=== PATIENT | female | born 1980 | race Caucasian/White ===

== ENCOUNTER 2019-05-12 07:00 | Outpatient (CLI) | payer OTHER ==
[2019-05-12] VITALS (13 sets, daily range): BP systolic 96–131; BP diastolic 62–70
[~2019-05-12] VITALS: Ht 147.3 cm; Wt 81.6 kg
[2019-05-12] MEDS ORDERED: MONT10TA49 PO (07:31)
[2019-05-12] MEDS ORDERED: FEXO180T81 PO (07:31)
[2019-05-12] MEDS ORDERED: HYDR25TA PO ×2 (07:31)
[2019-05-12 07:33] LABS: BASO # 0.1 x10^3/uL (0.0-0.2); BASO % 1 % (0-3); EOS # 0.1 x10^3/uL (0.0-0.7); EOS % 1 % (0-3); HEMATOCRIT 41.9 % (36.0-47.0); HEMOGLOBIN 14.1 g/dL (12.0-15.5); LYMPH % 25 % (24-48); MEAN CORPUSCULAR HEMOGLOBIN 29 pg (25-35); MEAN CORPUSCULAR HGB CONC 34 g/dL (31-37); MEAN CORPUSCULAR VOLUME 86 fL (79-100); MONO # 0.5 x10^3/uL (0.0-1.1); MONO % 6 % (0-9); NEUT # 5.6 x10^3/uL (1.8-7.7); NEUT % 68 % (31-73); PLATELET COUNT 378 x10^3/uL (140-400); RED CELL DISTRIBUTION WIDTH 13.6 % (11.5-14.5); WHITE BLOOD COUNT 8.3 x10^3/uL (4.0-11.0)
[2019-05-12] MEDS ORDERED: CEPH-264 PO (07:47)
[2019-05-12] MEDS ORDERED: LIDOCAINE WITH 8.4% SOD BICARB 3 ML DISP.SYRIN. ONE (07:56)
[2019-05-12] MEDS ORDERED: fentaNYL PF VIAL 100 MCG/2 ML VIAL ONE (08:09)
[2019-05-12] MEDS ORDERED: MIDAZOLAM HCL/PF 2 MG/2 ML VIAL. ONE (08:09)
[2019-05-12] MEDS ORDERED: MIDAZOLAM HCL/PF 2 MG/2 ML VIAL. IV ONE (08:15)
[2019-05-12] MEDS ORDERED: LIDOCAINE WITH 8.4% SOD BICARB 3 ML DISP.SYRIN. IJ ONE (08:15)
[2019-05-12] MEDS ORDERED: fentaNYL PF VIAL 100 MCG/2 ML VIAL IV ONE (08:15)
[2019-05-12] MEDS ORDERED: ONDANSETRON PF 4 MG/2 ML VIAL. ONE (08:43)
[2019-05-12] MEDS ORDERED: ONDANSETRON PF 4 MG/2 ML VIAL. IV ONE (08:45)
--- NOTE | 2019-05-12 09:33 | PDOC ---
MODERATE SEDATION ASSESSMENT RISKS/ALTERNATIVES Risks/Alternatives Risks and alternatives of this type of sedation and procedure discussed with: RISK/ALTERNATIVES: Patient H & P ON CHART H & P H & P on chart and reviewed for co-morbid conditions and appropriate labs. H&P ON CHART: Yes STATUS PREG STATUS ASSESSED: Yes MEDS/ALLERGIES REVIEWED Meds/Allergies Reviewed Medications and Allergies including time and route of recently administered narcotics and sedatives. MEDS/ALLERGIES REVIEWED: Yes ASA RATING ASA RATING: II AIRWAY ASSESSMENT Airway Assessment Airway patency, oral function limitations, presence of caps, crowns, dentures, partials, and ability to extend neck assessed. AIRWAY ASSESSMENT: Yes MALLAMPATI SCORE MALLAMPATI SCORE: II PRE-SEDATION ASSESSMENT PRE-SEDATION ASSESSMENT: Yes REBEKA ALVES MD May 12, 2019 09:33
--- NOTE | 2019-05-12 09:38 | PDOC ---
BRIEF OPERATIVE NOTE Pre-Op Diagnosis Mast cell activation Post-Op Diagnosis same Procedure Performed CT Bone Marrow Biopsy Surgeon Kate Anesthesia Type: Conscious Sedation Specimens Obtained 2 x 3cc aspirates and 1 x 10g core Complications No immediate REBEKA ALVES MD May 12, 2019 09:38
--- NOTE | 2019-05-12 09:39 | PDOC1 ---
History and Physical Date of Procedure Date of Admission History of Present Illness Reason for Visit Mast cell activation Past Medical History Past Medical History see nursing pre-op assessment Past Surgical History Past Surgical History see nursing pre-op assessment Current Medications Current Medications Current Medications Lidocaine/Sodium Bicarbonate (Buffered Lidocaine 1%) 3 ml STK-MED ONCE .ROUTE ; Start 05/12/19 at 07:56; Stop 05/12/19 at 07:57; Status DC Midazolam HCl (Versed) 2 mg STK-MED ONCE .ROUTE ; Start 05/12/19 at 08:09; Stop 05/12/19 at 08:09; Status DC Fentanyl Citrate (Fentanyl 2ml Vial) 100 mcg STK-MED ONCE .ROUTE ; Start 05/12/19 at 08:09; Stop 05/12/19 at 08:10; Status DC Lidocaine/Sodium Bicarbonate (Buffered Lidocaine 1%) 3 ml 1X ONCE IJ Last administered on 05/12/19at 09:09; Start 05/12/19 at 08:15; Stop 05/12/19 at 08:17; Status DC Midazolam HCl (Versed) 2 mg 1X ONCE IV Last administered on 05/12/19at 09:09; Start 05/12/19 at 08:15; Stop 05/12/19 at 08:17; Status DC Fentanyl Citrate (Fentanyl 2ml Vial) 100 mcg 1X ONCE IV Last administered on 05/12/19at 09:09; Start 05/12/19 at 08:15; Stop 05/12/19 at 08:17; Status DC Ondansetron HCl (Zofran) 4 mg STK-MED ONCE .ROUTE ; Start 05/12/19 at 08:43; Stop 05/12/19 at 08:44; Status DC Ondansetron HCl (Zofran) 4 mg 1X ONCE IV Last administered on 05/12/19at 09:09; Start 05/12/19 at 08:45; Stop 05/12/19 at 08:49; Status DC Active Scripts Active Reported Keflex (Cephalexin) 500 Mg Capsule 500 Mg PO QID 10 Days Montelukast Sodium Tablet (Montelukast Sodium) 10 Mg Tablet 10 Mg PO DAILY Sienna Allergy (Fexofenadine Hcl) 180 Mg Tablet 180 Mg PO BID Hydroxyzine Hcl 25 Mg Tablet 75 Mg PO PRN PRN Hydroxyzine Hcl 25 Mg Tablet 25 Mg PO DAILY Allergies Allergies: Coded Allergies: Penicillins (Verified Allergy, Intermediate, 05/12/19) Sulfa (Sulfonamide Antibiotics) (Verified Allergy, Intermediate, 05/12/19) Physical Exam Vital Signs Vital Signs Date Time Temp Pulse Resp B/P (MAP) Pulse Ox O2 Delivery O2 Flow Rate FiO2 05/12/19 09:21 70 12 100 Nasal Cannula 05/12/19 09:10 2.0 05/12/19 08:55 98/64 (75) 05/12/19 07:42 97.9 97.9 Other see nursing pre-op assessment Assessment Assessment Mast cell activation Plan Plan CT Bone Marrow Biopsy REBEKA ALVES MD May 12, 2019 09:39
--- NOTE | 2019-05-12 10:40 | RAD ---
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 The patient was monitored by a qualified independent observer throughout the time of sedation. Please refer to the medical record for exact doses of medications utilized to achieve moderate sedation. Antibiotics: None Fluoro Time: Not applicable Contrast: None Sterility: The procedure was performed in its entirety using appropriate elements of sterile technique. Consent: The procedure was explained in its entirety to the patient or the patients designated publications sales representative by a member of the treatment team, including a discussion of the risks, benefits and commonly accepted alternatives to the procedure, as well as the expected consequences of no therapy whatsoever. Discussion of the risks included, but was not limited to, those that are most frequent and those that are rare but possibly severe or life-threatening, as well as the possibility of unforeseen complications. Technique and Findings: Following informed consent, the patient was prepped and draped in usual sterile fashion. Preliminary CT scan of the area of interest was performed. 1% Lidocaine was used to achieve local anesthesia. Under periodic CT surveillance, an 11-gauge needle was advanced through the cortex of the posterior superior iliac spine and 2 separate 2 mL marrow aspirates were obtained and preserved on site by the senior it assistant. A single 11-gauge core biopsy specimen was then obtained and preserved in formalin. The needle was then removed and hemostasis was achieved with manual compression. Complications: No immediate Impression: 1. CT-guided bone marrow aspiration and biopsy as described PQRS Compliance Statement: One or more of the following individualized dose reduction techniques were utilized for this examination: 1. Automated exposure control 2. Adjustment of the mA and/or kV according to patient size 3. Use of iterative reconstruction technique
== END 2019-05-12 11:40 | disposition home or self-care (01) ==
LOC: INTRAD 07:00
PROVIDERS: ATTEND Internal Medicine Hematology & Oncology
DX: D89.40 Mast cell activation, unspecified (principal); Z79.01 Long term (current) use of anticoagulants; Z88.1 Allergy status to other antibiotic agents; Z88.0 Allergy status to penicillin
CPT/HCPCS: 36415; 38222; 77012; 85025; 85610; 88184; 88185; 88237; 99152; J2250; J2405; J3010

== ENCOUNTER → 2020-04-05 | Outpatient (CLI) | payer OTHER ==
[2019-05-12 11:00] VITALS: BP 113/70
[~2020-04-05] MED LIST: CEPH-264 PO; FEXO180T81 PO; HYDR25TA PO; LORA10TA55 PO; MONT10TA49 PO; OMEP20TA63 PO; juice plus vitamins
--- NOTE | 2020-04-05 13:07 | PAIN ---
DATE OF SERVICE: 04/05/2020 INITIAL CONSULTATION FOR PAIN CLINIC CHIEF COMPLAINT: Low back and right lower extremity pain. HISTORY OF PRESENT ILLNESS: This is a 40-year-old female who presents with history of pain for about 10 years plus started when she was and over the years, she has had multiple physical therapy, regimens, chiropractic treatments. Became somewhat manageable, but never fully relieved of the entire amount of pain in her right leg and low back. The patient reports it is worse with walking, standing, changing positions. When she walks for more than 10-15 minutes, she has to stop and rest for about 2-3 minutes and the pain did subside significantly, but then she can start up again and the whole thing repeats. The patient reports it awakens her from sleep at least once or twice a night, does not affect her bowel or bladder control, but does affect her ability to walk significantly. She has had physical therapy, chiropractic treatment, exercise, which she does currently and was working on this morning, but her right foot became numb, so she stopped. The patient reports that she has taken ibuprofen, which helps, but only for about 40-50%, as well as physical therapies in the past. The patient has not had any other treatments. She has not had any diagnostic studies at this time as well. The patient reports the pain is constant, tingling with numbness and radiating pain in the right lower extremity, aching as well in the back. The patient rates her disability rating from 0-10, 10 being the worst, is a 4 with family home responsibilities, recreation, social activity, 5 with occupation, 6 with sexual behavior, 3 with self-care and 3 with life support activities. The patient reports no loss of motor function, but significant fatigability in the right lower extremity but not using any assistive devices to ambulate. PAST MEDICAL HISTORY: Significant for arthritis, dizziness. PREVIOUS SURGERY: . No other surgeries. CURRENT MEDICATIONS: Include Prilosec, montelukast, and loratadine. ALLERGIES: THE PATIENT HAS ALLERGY TO PENICILLIN AND SULFA. FAMILY HISTORY: Significant for cancers, heart disease and diabetes. SOCIAL HISTORY: The patient does not drink alcohol, does not smoke. Not using illegal, illicit or recreational drugs. She is , lives with her spouse, has 2 children living at home, lives in [place], [place]. REVIEW OF SYSTEMS: The patient's review of systems is positive for those items mentioned in history of present illness. All systems reviewed and otherwise negative. It is complete, full and well documented on the patient's chart. PHYSICAL EXAMINATION: VITAL SIGNS: The patient's blood pressure 117/70, pulse 72, respirations 16, temperature 98.3 degrees Fahrenheit. Height is 4 feet 11 inches, weight is 185 pounds. GENERAL: The patient is awake, alert, oriented, appropriate, very pleasant demeanor. HEENT: Shows normocephalic, atraumatic. Extraocular movements are intact and symmetrical. Oral cavity: Mucous membranes moist and pink. Dentition is intact. NECK: Shows anterior throat supple without palpable lymphadenopathy noted. Swallow reflex symmetrical. CHEST: Shows normal on inspection. Breath sounds are clear bilaterally. HEART: Shows S1, S2 clear. No murmurs auscultated. ABDOMEN: Obese but soft, nontender, nondistended. No palpable organomegaly is noted. There is no rebound or guarding demonstrated. BACK: Shows spine grossly in the midline. Normal appearing thoracic kyphosis and minor flattening of lumbar lordotic curvature. Lumbar paraspinous muscle shows symmetrical on inspection, on palpation shows some moderate tenderness diffusely bilaterally, but only diffusely throughout the upper, middle and lower distribution of paraspinous muscles and much worse; however, in the inferior aspect on the right compared to the left with very significant tenderness over the posterior superior iliac spine as well. The patient shows good rotational motion of lumbar spine, however, both laterally as well as extension and flexion without significant pain reported. EXTREMITIES: Lower extremities show deep tendon reflexes 2+ in the patellar, 1+ tendo-calcaneus tendons. Motor exam is strong with approximately 4 on a scale of 5 with right dorsiflexion, extension and 5/5 on the left. Quadriceps and hamstring flexion 5/5 and equal bilaterally. Peripheral pulses are 1+ posterior tibial. No peripheral edema is noted bilaterally. Peripheral pulses are 1+ posterior tibial. No peripheral edema noted. Lower extremities are warm and dry to touch, equal in color and appearance. The patient is able to stand, stand on her toes without significant difficulty or loss of balance. Walks with a normal appearing gait, does not appear to favor the right or left lower extremity significantly with ambulation. Straight leg raise noted to be negative for reproduction of radicular symptoms bilaterally. Gaenslen's and Henri's maneuvers are negative bilaterally as well. SKIN: The patient's skin shows warm and dry, good turgor. No edema. No sores, rashes or bruising throughout. IMPRESSION: This is a 40-year-old female with; 1. A 10-year plus history of low back and right lower extremity pain in a radicular pattern. 2. Arthritis. 3. Obesity. PLAN: Options were discussed with the patient including conservative medical managements, physical therapies and interventional techniques. She would like to pursue interventional techniques. We discussed a lumbar epidural steroid injection using description as well as anatomical models to describe the procedure. The patient will wait for preauthorization with her insurance provider. Once this is obtained, the patient will return to clinic and plan on lumbar epidural steroid injection at that time in the translaminar approach at the L4-L5 level on the right. DENNIS GUNN MD DR: KAYCE/dominic JOB#: [id number] / [id number]
== END | disposition home or self-care (01) ==
LOC: PNCL 11:20
PROVIDERS: ATTEND Anesthesiology
DX: M54.5 Low back pain (principal); M79.661 Pain in right lower leg; M19.90 Unspecified osteoarthritis, unspecified site; Z88.8 Allergy status to other drugs, medicaments and biological substances; Z88.2 Allergy status to sulfonamides; Z88.0 Allergy status to penicillin; Z79.899 Other long term (current) drug therapy
CPT/HCPCS: G0463

== ENCOUNTER → 2020-04-13 | Outpatient (CLI) | payer OTHER ==
[2019-05-12 11:00] VITALS: BP 113/70
[~2020-04-13] MED LIST changes: +IOHEXOL 180 MG/ML 10 ML VIAL. ONE; +methylPREDNISolone ACETATE 40 MG/ML VIAL. ONE; +methylPREDNISolone ACETATE 80 MG/ML VIAL. ONE
--- NOTE | 2020-04-13 10:20 | PAIN ---
DATE OF SERVICE: 04/13/2020 PROGRESS NOTE FOR PAIN CLINIC DIAGNOSES: Lumbar radiculopathy with lumbar degenerative disk disease. HISTORY OF PRESENT ILLNESS: The patient is a 40-year-old female who returns for followup status post initial evaluation and preauthorization for lumbar epidural steroid injection. The patient reports she has obtained that now and would like to proceed. Reports pain in the low back, right lower extremity as it was previously, posterior gluteus, posterolateral thigh, lateral anterior thigh and posterior calf. The patient reports it is aching and tight, tingling, becoming more constant with activity. The patient reports it is an 8 on a scale of 10 at its worst over the past week, 7 on average and 4 at its least and is a 4 today. The patient reports it is worse with walking, standing, changing positions, better with sitting or lying down, it does not awaken her from sleep at night, most nights. No new motor or sensory deficits, no new bowel or bladder incontinence or other complaints. PHYSICAL EXAMINATION: VITAL SIGNS: The patient's blood pressure is 116/70, pulse is 73, respirations 16, temperature 98.2 degrees Fahrenheit. GENERAL: The patient is awake, alert, oriented, appropriate, very pleasant demeanor. HEENT: Shows normocephalic, atraumatic. Extraocular movements are intact and symmetrical. Oral cavity shows mucous membranes moist and pink. Dentition is intact. NECK: Shows anterior throat supple without palpable lymphadenopathy noted. Swallow reflex symmetrical. CHEST: Shows normal on inspection. Breath sounds are clear bilaterally. HEART: Shows S1, S2 clear. No murmurs auscultated. ABDOMEN: Soft, nontender, nondistended. BACK: Shows spine grossly in the midline. Normal appearing thoracic kyphosis, some minor flattening of lumbar lordotic curvature. Lumbar paraspinous muscle shows symmetrical on inspection, on palpation shows some moderate tenderness diffusely bilaterally, but only diffusely without significant radiation. The patient has good rotational motion of lumbar spine, both laterally as well as extension and flexion without significant difficulty. EXTREMITIES: Lower extremities show deep tendon reflexes at 2+ in the patellar, 1+ tendo-calcaneus tendons. Motor exam is approximately 4 on a scale of 5 with right ankle with dorsiflexion and extension, 5/5 on the left side. Quadriceps and hamstring flexion 5/5 bilaterally. Peripheral pulses are 1+ posterior tibia. No peripheral edema is noted. Options were discussed with the patient. The patient's old chart was reviewed as her current medication regimen updated. Current review of systems updated today as well. We will proceed with a lumbar epidural steroid injection today with fluoroscopic guidance. Risks were discussed including but not limited to bleeding, infection, possibility of epidural hematoma, subsequent neurological compromise, dural puncture, headaches, spinal cord and/or nerve damage, side effects of steroid medication and poor results regarding pain control. The patient understands and wished to proceed. The patient will return to clinic in approximately 2 weeks for followup. She was counseled on return appointment, activity level and side effects to be aware of. DIAGNOSES: Lumbar radiculopathy with lumbar degenerative disk disease. PROCEDURE: Lumbar epidural steroid injection, translaminar approach L4-L5 level using C-arm fluoroscopic guidance under sterile prep and drape using local anesthetic. MEDICATION INJECTED: A total of 120 mg Depo-Medrol plus 10 mL of preservative-free normal saline and 2 mL of contrast. CONDITION AT DISCHARGE: Stable. The patient tolerated procedure well, had no complications. DENNIS GUNN MD DR: KAYCE/dominic JOB#: [id number] / [id number]
== END | disposition home or self-care (01) ==
LOC: PNCL 08:27
PROVIDERS: ATTEND Anesthesiology
DX: M51.16 Intervertebral disc disorders with radiculopathy, lumbar region (principal); Z79.899 Other long term (current) drug therapy; Z88.0 Allergy status to penicillin; Z88.2 Allergy status to sulfonamides
CPT/HCPCS: 62323; J1030; J1040; Q9965

== ENCOUNTER → 2020-04-27 | Outpatient (CLI) | payer OTHER ==
[2019-05-12 11:00] VITALS: BP 113/70
--- NOTE | 2020-04-27 09:11 | PDOC ---
Progress Note - Pain Clinic Date of Service: DOS: DATE: 04/27/20 TIME: 09:07 Diagnosis: Dx: Lumbar radiculopathy with lumbar degenerative disc disease History or Present Illness: HPI: 40-year-old female turns follow-up status post lumbar epidural steroid injection x1. Patient reports about 70% improvement for the first week or so the pain began to return after that time the low back and right lower extremity mostly posterior gluteus posterior thigh posterior lateral thigh anterior thigh medial thigh medial calf patient reports is a 6 on scale 10 is worse over the past week for an average 3 this least is a 4 today. Patient which is tingling dull c onstant aching in the low back itself worse with activity standing walking changing positions again significantly improved for the first week or so but the pain is returning now not to the level baseline but is still painful. Patient which wakes her from sleep occasionally but not very often patient which feels better actually when walking so distances but with running is more painful. Patient ports no new motor or sensory deficits no new bowel or bladder con's or other complaints. Physical Exam: VS: Blood pressure is 114/68 pulse 70 respirations 18 temperature 90.5 F weight is 1 8 3 pounds PE: PHYSICAL EXAMINATION: GENERAL: The patient is awake, alert, oriented, appropriate, very pleasant demeanor HEENT: Shows normocephalic, atraumatic. Extraocular movements are intact and symmetrical. Oral cavity: Mucous membranes moist and pink. Dentition is intact. NECK: Shows anterior throat supple without palpable lymphadenopathy noted. Swallow reflex symmetrical. CHEST: Shows normal on inspection. Breath sounds are clear bilaterally, no rales rhonchi or wheezes auscultated. HEART: Shows S1, S2 clear. No murmurs auscultated. ABDOMEN: Soft, nontender, nondistended. No palpable organomegaly is noted. No rebound or guarding demonstrated. BACK: Shows spine grossly in the midline. Normal-appearing cervical lordotic curvature. There is slightly increased thoracic kyphosis, some minor flattening of the lumbar lordotic curvature. Lumbar paraspinous muscles show symmetrical on inspection, on palpation shows some moderate tenderness diffusely throughout the upper, middle and lower distribution of the paraspinous muscles bilaterally and also into the lower thoracic paraspinous musculature, firm and tender, but without specific trigger points, without radiation of pain. The patient has good rotational motion of the lumbar spine, both laterally as well as extension and flexion without significant difficulty. No tenderness over the spinous processes, sacrum or sacroiliac regions. EXTREMITIES: Lower extremities show deep tendon reflexes 2+ in the patellar and tendo calcaneus tendons. Motor exam is 4 on a scale of 5 with right dorsiflexion, extension, quadriceps and hamstring flexion and 5/5 on the left. Peripheral pulses are 1+ posterior tibial. No peripheral edema is noted bilaterally. Lower extremities are warm and dry to touch, equal in color and appearance. SKIN: Shows warm and dry, good turgor. No edema. No sores, rashes or bruising throughout. Procedure: Procedure: Options discussed with the patient. Patient's old chart was reviewed as her current medication regimen updated current review of systems updated today as well. We will proceed with a second lumbar epidural straight injection today with fluoroscopic guidance risks again discussed including but not limited to bleeding infection possibility of epidural hematoma subsequent neurological compromise dural puncture headache spinal cord and/or nerve damage side effects of steroid medication and poor results chronic pain control. Patient understands wish to proceed patient return to clinic in approximately 2 weeks for follow-up was counseled return appointment to [facility] and side effects beware. Medication Injected: Med Injected: Procedure is lumbar epidural steroid injection under local anesthetic using sterile prep and drape at the L4-5 level using C-arm fluoroscopic guidance in both AP and lateral views medications injected is 120 mg Depo-Medrol + 10 mL preservative-free normal saline and 2 mL Isovue for contrast- condition at discharge is stable patient tolerated procedure well had no complications. Condition at Discharge: Condition at Discharge: Condition at discharge stable patient will procedure well had no complications. DENNIS GUNN MD Apr 27, 2020 09:11
== END | disposition home or self-care (01) ==
LOC: PNCL 08:07
PROVIDERS: ATTEND Anesthesiology
DX: M51.16 Intervertebral disc disorders with radiculopathy, lumbar region (principal); Z98.890 Other specified postprocedural states; Z88.0 Allergy status to penicillin; Z88.1 Allergy status to other antibiotic agents
CPT/HCPCS: 62323; J1030; J1040; Q9965

== ENCOUNTER → 2020-05-11 | Outpatient (CLI) | payer OTHER ==
[2019-05-12 11:00] VITALS: BP 113/70
--- NOTE | 2020-05-11 09:43 | PDOC ---
Progress Note - Pain Clinic Date of Service: DOS: DATE: 05/11/20 TIME: 09:40 Diagnosis: Dx: Lumbar radiculopathy with lumbar degenerative disc disease History or Present Illness: HPI: 40-year-old female returns follow-up status post lumbar epidurals injection x2. Patient reports about 60% improvement overall in the low back and right lower extremity pain patient reports she has been increasing her activity gradually and slowly but running is still painful patient reports otherwise she doing well with walking standing changing positions better sleeping at night does not awaken her from sleep patient describes the pain as a dull pain with some press ure sensation and burning in the low back right lower extremity posterior gluteus posterior lateral thigh lateral anterior thigh medial thigh medial lower leg occasionally mostly just in the back and right hip patient ports a 6 on scale 10 is worse over the past week 3 on average to its least and is a 3 today. Patient ports no new motor or sensory deficits no new bowel or bladder incontinence or other complaints. Physical Exam: VS: Blood pressure is 123/63 pulse 72 respirations 18 temperature 98.5 F height is 4 foot 10 inches weight is 183 pounds PE: PHYSICAL EXAMINATION: GENERAL: The patient is awake, alert, oriented, appropriate, very pleasant demeanor HEENT: Shows normocephalic, atraumatic. Extraocular movements are intact and symmetrical. Oral cavity: Mucous membranes moist and pink. NECK: Shows anterior throat supple without palpable lymphadenopathy noted. Swallow reflex symmetrical. CHEST: Shows normal on inspection. Breath sounds are clear bilaterally. HEART: Shows S1, S2 clear. No murmurs auscultated. ABDOMEN: Soft, nontender, nondistended. No palpable organomegaly is noted. No rebound or guarding demonstrated. BACK: Shows spine grossly in the midline. Normal-appearing cervical lordotic curvature. There is slightly increased thoracic kyphosis, some minor flattening of the lumbar lordotic curvature. Lumbar paraspinous muscles show symmetrical on inspection, on palpation shows some moderate tenderness diffusely throughout the upper, middle and lower distribution of the paraspinous muscles bilaterally ,without specific trigger points, without radiation of pain. The patient has good rotational motion of the lumbar spine, both laterally as well as extension and flexion without significant difficulty. No tenderness over the spinous processes, sacrum or sacroiliac regions. EXTREMITIES: Lower extremities show deep tendon reflexes 2+ in the patellar and tendo calcaneus tendons. Motor exam is 4 on a scale of 5 with right dorsiflexion, extension, quadriceps and hamstring flexion and 5/5 on the left. Peripheral pulses are 1+ posterior tibial. No peripheral edema is noted bilaterally. Lower extremities are warm and dry to touch, equal in color and appearance. SKIN: Shows warm and dry, good turgor. No edema. No sores, rashes or bruising throughout. Procedure: Procedure: Options were discussed with the patient. Patient will chart reviews her current medication regimen updated current review of systems updated today as well. We will proceed with a third in the series lumbar epidural straight injection today with fluoroscopic guidance. Risks were again discussed including but not limited to bleeding infection possibility of epidural hematoma subsequent neurological compromise dural puncture headache spinal cord and or nerve damage side effects of steroid medication and poor results regarding pain control. Patient understands wished to proceed. Patient return to clinic in approximately 2 weeks for follow-up with calcis return appointment to [facility] and side effects to be aware of. Medication Injected: Med Injected: Procedure is lumbar epidural steroid injection under local anesthetic using sterile prep and drape at the L4-5 level using C-arm fluoroscopic guidance in both AP and lateral views medications injected is 120 mg Depo-Medrol + 10 mL preservative-free normal saline and 2 mL contrast- condition at discharge is stable patient tolerated procedure well had no complications. Condition at Discharge: Condition at Discharge: Condition at discharge is stable patient tolerated procedure well had no complications. DENNIS GUNN MD May 11, 2020 09:43
== END | disposition home or self-care (01) ==
LOC: PNCL 09:16
PROVIDERS: ATTEND Anesthesiology
DX: M51.16 Intervertebral disc disorders with radiculopathy, lumbar region (principal); Z88.0 Allergy status to penicillin; Z88.2 Allergy status to sulfonamides; Z79.899 Other long term (current) drug therapy
CPT/HCPCS: 62323; J1030; J1040; Q9965